=== PATIENT | male | born 1940 | race Caucasian/White ===

== ENCOUNTER 2019-12-04 06:46 | Emergency (ER) | payer MEDICARE ==
--- NOTE | 2019-12-04 07:29 | ED ---
Back Pain - HPI Summary HPI Summary: 78 year old M arriving via private car with family member complains of pain and ecchymosis over the right mid posterior thorax after walking up 4 stair steps yesterday 12/03/2019 PM, losing his balance on the steps, falling backwards and hitting his lower back in to a propane tank. Patient states he did not sleep well last night due to the pain. Symptoms rated 5/10 in severity. Symptoms aggravated by nothing. Symptoms alleviated by nothing. Negative PMHx diabetes. Positive PMHx hypertension. Medications reviewed. On aspirin 81 mg. - History of Current Complaint Chief Complaint: EDBackInjuryPain Stated Complaint: FALL PER PT Time Seen by Provider: 12/04/19 07:21 Hx Obtained From: Patient Onset/Duration: Lasting Hours - yesterday 12/03/2019 PM, Still Present Onset/Duration: Started Hours Ago - yesterday 12/03/2019 PM, Traumatic, Still Present Timing: Constant Back Pain Location: Is Discrete @ - right mid posterior thorax Severity Currently: Moderate Pain Intensity: 5 Pain Scale Used: 0-10 Numeric Aggravating Symptom(s): Nothing Alleviating Symptom(s): Nothing - Allergies/Home Medications Allergies/Adverse Reactions: Allergies Allergy/AdvReac Type Severity Reaction Status Date / Time No Known Allergies Allergy Verified 12/04/19 06:49 PMH/Surg Hx/FS Hx/Imm Hx Endocrine/Hematology History: Denies: Hx Diabetes Cardiovascular History: Reports: Hx Hypertension Infectious Disease History: Yes Infectious Disease History: Denies: Traveled Outside the [place] in Last 30 Days - Social History Alcohol Use: Rare Substance Use Type: Reports: None Smoking Status (MU): Never Smoked Tobacco Review of Systems Positive: Other - pain over the right mid posterior thorax Positive: Other - ecchymosis over the right mid posterior thorax All Other Systems Reviewed And Are Negative: Yes Physical Exam - Summary Physical Exam Summary: Constitutional: Well-developed, Well-nourished, Alert, Cooperative Skin: Warm, Dry HENT: Normocephalic, atraumatic. Midface stable, Dentition intact Eyes: EOM normal, PERRL Neck: Trachea is midline. No stridor; No JVD; No step off; No posterior cervical spine tenderness Cardio: Rhythm regular, rate normal Heart sounds normal; Intact distal pulses; Radial pulses are 2+ and symmetric. Pulmonary/Chest wall: Effort normal; Breath sounds normal; Equal chest rise; No flail segment; No rib tenderness; No sternal tenderness Abd: Soft, Appearance normal. No distension; No tenderness Musculoskeletal: Full ROM and no tenderness at hips, ankles, shoulders, elbows and knees; No joint swelling; No vertebral body tenderness; No step off or deformity of the spine; Pelvis is stable to lateral compression and rock; There is a 6-cm by 8-cm area of ecchymosis to the right mid posterior thorax with underlying tenderness Neuro: Alert, Oriented x3, GCS 15. Strength 5/5 all extremities. Psych: Mood and affect Normal Triage Information Reviewed: Yes Vital Signs On Initial Exam: Initial Vitals Temp Pulse Resp BP Pulse Ox 97.9 F 59 15 135/54 97 12/04/19 06:47 12/04/19 06:47 12/04/19 06:47 12/04/19 06:47 12/04/19 06:47 Vital Signs Reviewed: Yes Procedures - Sedation Patient Received Moderate/Deep Sedation with Procedure: No Diagnostics - Vital Signs Vital Signs Temp Pulse Resp BP Pulse Ox 12/04/19 06:47 97.9 F 59 15 135/54 97 - Laboratory Lab Statement: Any lab studies that have been ordered have been reviewed, and results considered in the medical decision making process. - CT Chest CT Interpretation Completed By: Radiologist Summary of CT Findings: 1. FRACTURES OF THE RIGHT POSTERIOR 11TH AND 12TH RIBS NOTED. NO PLEURAL EFFUSION OR PNEUMOTHORAX SEEN. 2. SMALL PULMONARY NODULES. IF THE PATIENT HAS RISK FACTORS RECOMMEND A FOLLOW-UP LOW-DOSE NONCONTRAST CT OF THE CHEST IN ONE YEARS TIME. ED physician has reviewed this imaging report. Re-Evaluation - Re-Evaluation First Eval Re-Evaluation Time: 09:30 Comment: patient updated on CT Chest findings Back Pain Course/Dx - Course Course Of Treatment: 78 y/o male w fall p/w rib pain. - exam w TTP R posterior ribs, ecchymosis. - not on blood thinners. Did not hit head. No LOC. No CTL tenderness. EWOB on RA. CT chest w 11/12th rib fractures, no PTX or hemothorax. - given lido patch, pain control and IS. Called patient and left regarding follow up w PCP re: nodules in lung. - Diagnoses Provider Diagnoses: Multiple fractures of ribs of right side Discharge ED - Sign-Out/Discharge Documenting (check all that apply): Patient Departure - Discharge Plan Condition: Stable Disposition: HOME Prescriptions: Cyclobenzaprine TAB* [Flexeril 10 MG TAB*] 10 mg PO TID PRN 4 Days #12 tab PRN Reason: Pain - Moderate oxyCODONE/Acetamin 5/325 MG* [Percocet 5/325 TAB*] 1 tab PO Q6H PRN 3 Days #12 tab MDD 4 PRN Reason: Pain Patient Education Materials: Rib Fracture (ED) Referrals: Matt Burdick MD [Primary Care Provider] - Additional Instructions: You were seen in the emergency department for fall and rib pain. You have for fractures of your 11th and 12th ribs. Please take Tylenol for pain as well as Percocet for severe pain. He can take Flexeril for muscle relaxer. Please do not take Flexeril and Percocet at the same time. Please use your incentive spirometer daily, you can use this during TV commercial breaks. This will help you prevents pneumonia. Please follow up with your primary care doctor in next 2-3 days and return to emergency department for worsening pain, trouble breathing, or concerning symptoms. It was a pleasure taking care of you today. - Billing Disposition and Condition Condition: STABLE Disposition: Home - Attestation Statements Document Initiated by Andra: Yes Documenting Scribe: Scarlett Morales Provider For Whom Andra is Documenting (Include Credential): Anayeli Last MD Scribe Attestation: IScarlett, scribed for Anayeli Last MD on 12/04/19 at 1024. Scribe Documentation Reviewed: Yes Provider Attestation: The documentation as recorded by the Scarlett santos accurately reflects the service I personally performed and the decisions made by me, Anayeli Last MD Status of Scribe Document: Viewed
[2019-12-04] MEDS ORDERED: Lidocaine PATCH 5%* 1 PATCH TRANSDERM SCH (10:00)
[2019-12-04 10:19] VITALS: BP 129/84
[2019-12-04] MEDS ORDERED: Lidocaine Patch REMOVE* 1 NOTE MISC SCH ×2 (21:00)
== END 2019-12-04 09:40 | disposition home or self-care (01) ==
LOC: ED 06:46
DX: S22.41XA Multiple fractures of ribs, right side, initial encounter for closed fracture (principal); W10.9XXA Fall (on) (from) unspecified stairs and steps, initial encounter; Y92.9 Unspecified place or not applicable; I10 Essential (primary) hypertension; Z79.82 Long term (current) use of aspirin
CPT/HCPCS: 71250; 99282; A9270-GY